=== PATIENT | female | born 1995 | race Caucasian/White ===

== ENCOUNTER 2017-10-21 19:34 | Emergency (ER) | payer BC ==
--- NOTE | 2017-10-21 20:12 | UC ---
Respiratory Complaint HPI - HPI Summary HPI Summary: Pt presents with 3 weeks of cold symptoms. She says about 3 weeks ago her symptoms started with a sore throat that, over the week, progressed to sinus pain/pressure/congestion. Over the last week has developed an intermittently productive cough in addition to the above. She has felt feverish at times, but has not taken her temperature. Has been taking ibuprofen and OTC mucinex with no relief. Denies chills, SOB, chest pain, abdominal pain, n/v/d/c. - History of Current Complaint Stated Complaint: UPPER RESPIRATORY Time Seen by Provider: 10/21/17 20:04 Hx Obtained From: Patient Hx Last Menstrual Period: 06/01/16 Onset/Duration: Gradual Onset Timing: Constant Severity Initially: Mild Severity Currently: Moderate Pain Intensity: 6 Pain Scale Used: 0-10 Numeric Character: Cough: Productive - Allergies/Home Medications Allergies/Adverse Reactions: Allergies Allergy/AdvReac Type Severity Reaction Status Date / Time No Known Allergies Allergy Verified 06/04/16 17:10 PMH/Surg Hx/FS Hx/Imm Hx - Additional Past Medical History Additional PMH: None Previously Healthy: Yes - Surgical History Surgical History: Yes Surgery Procedure, Year, and Place: bilat ACL, T&A - Family History Known Family History: Positive: Hypertension, Respiratory Disease - Social History Occupation: Student Lives: Alone Alcohol Use: Occasionally Substance Use Type: None Smoking Status (MU): Never Smoked Tobacco Review of Systems Constitutional: Negative Skin: Negative Eyes: Negative ENT: Sore Throat, Nasal Discharge, Sinus Congestion, Sinus Pain/Tenderness Respiratory: Cough Cardiovascular: Negative Gastrointestinal: Negative Neurovascular: Negative Musculoskeletal: Negative Neurological: Negative Psychological: Negative All Other Systems Reviewed And Are Negative: Yes Physical Exam - Summary Physical Exam Summary: GENERAL: Mildly ill appearing. NAD. HEENT: NC/AT. Conjunctiva clear without inflammation or discharge. TMs intact , no bulging, erythema, or edema. Nasal mucosa mildly swollen and erythematous with yellow discharge. TTP maxillary and frontal sinus. Posterior oropharynx without exudates, erythema, or tonsillar enlargement. Uvula midline. NECK: Supple without lymphadenopathy CHEST: CTAB. No r/r/w. No accessory muscle use. Breathing comfortably and in no distress. CV: RRR. Without m/r/g. Pulses intact. SKIN: No rash or erythema noted. NEURO: Alert. CN II-XII grossly intact. PSYCH: Age appropriate behavior. Triage Information Reviewed: Yes Respiratory Course/Dx - Course Course Of Treatment: Sinusitis - Augmentin - Differential Dx/Diagnosis Provider Diagnoses: Sinusitis Discharge - Sign-Out/Discharge Documenting (check all that apply): Discharge - Discharge Plan Condition: Stable Disposition: HOME Prescriptions: Amoxicillin/Clavulanate TAB* [Augmentin TAB 875*] 875 mg PO BID #20 tab Patient Education Materials: Sinusitis (ED) Referrals: No Primary Care Phys,NOPCP [Medical Doctor] - Additional Instructions: If you develop a fever, shortness of breath, chest pain, new or worsening symptoms - please call your PCP or go to the ED. - Billing Disposition and Condition Condition: STABLE Disposition: HOME
[2017-10-21 20:17] VITALS: BP 130/77
[2017-10-21] MEDS ORDERED: Amoxicillin/Clavulanate TAB* 875 MG PO ONE (20:26)
== END 2017-10-21 20:37 | disposition home or self-care (01) ==
LOC: UCCORT 19:34
DX: J32.9 Chronic sinusitis, unspecified (principal)
CPT/HCPCS: 99212; A9270-GY; G0463

== ENCOUNTER 2017-11-18 17:18 | Emergency (ER) | payer BC ==
[2017-11-18 18:27] VITALS: BP 132/79
[2017-11-18] MEDS ORDERED: predniSONE TAB* 20 MG PO ONE (18:46)
--- NOTE | 2017-11-18 19:14 | UC ---
Skin Complaint HPI - HPI Summary HPI Summary: states about 9 days ago she used a product to remove hair from legs/thighs and that she started itching then. The rash has worsened despite using OCD benadryl and other antihistamines. Denies fever, pain or d/c - History of Current Complaint Chief Complaint: UCRash Time Seen by Provider: 11/18/17 18:32 Stated Complaint: SKIN COMPLAINT - RASH Hx Obtained From: Patient Hx Last Menstrual Period: [id number] ?: No Onset/Duration: Sudden Onset, Lasting Days Skin Exposure Onset/Duration: Days Ago Timing: Constant Onset Severity: Mild Current Severity: Moderate Pain Intensity: 0 Pain Scale Used: 0-10 Numeric Location: Discrete - thighs and legs Character: Pruritus, Hives Aggravating Factor(s): Wind, Humidity Alleviating Factor(s): Nothing Associated Signs & Symptoms: Positive: Negative Related History: Trauma - Allergy/Home Medications Allergies/Adverse Reactions: Allergies Allergy/AdvReac Type Severity Reaction Status Date / Time No Known Allergies Allergy Verified 11/18/17 18:27 Review of Systems Constitutional: Negative All Other Systems Reviewed And Are Negative: Yes PMH/Surg Hx/FS Hx/Imm Hx Previously Healthy: Yes - Surgical History Surgical History: Yes Surgery Procedure, Year, and Place: bilat ACL, T&A - Family History Known Family History: Positive: Hypertension, Respiratory Disease - Social History Alcohol Use: Occasionally Substance Use Type: None Smoking Status (MU): Never Smoked Tobacco Physical Exam Triage Information Reviewed: Yes Appearance: Well-Appearing, No Pain Distress, Well-Nourished Vital Signs: Initial Vital Signs Temp 98.6 F 11/18/17 18:20 Pulse 84 11/18/17 18:20 Resp 16 11/18/17 18:20 BP 132/79 11/18/17 18:20 Pulse Ox 100 11/18/17 18:20 Vital Signs Reviewed: Yes Eyes: Positive: Conjunctiva Clear ENT: Positive: Hearing grossly normal Neck: Positive: Supple Respiratory: Positive: No respiratory distress Cardiovascular: Positive: Pulses Normal, Brisk Capillary Refill Skin Exam: Other Skin: Positive: rashes - macular erythematous rash with some raised borders on inner thighs and legs Course/Dx - Course Course Of Treatment: start prednisone with breakfast, apply HCT cream as directed, f/u with PCP in 2 w - Diagnoses Provider Diagnoses: contact dermatitis Discharge - Sign-Out/Discharge Documenting (check all that apply): Discharge/Admit/Transfer - Discharge Plan Condition: Stable Disposition: HOME Prescriptions: Hydrocortisone 2.5% CREAM(NF) 1 applic TOPICAL QID 7 Days #1 tube predniSONE TAB* [Deltasone TAB*] 40 mg PO DAILY 5 Days #10 tab Patient Education Materials: Prednisone (By mouth), Dermatitis (ED) Referrals: Dania Sahni MD [Primary Care Provider] - - Billing Disposition and Condition Condition: STABLE Disposition: HOME
== END 2017-11-18 19:07 | disposition home or self-care (01) ==
LOC: UCCORT 17:18
DX: L25.9 Unspecified contact dermatitis, unspecified cause (principal)
CPT/HCPCS: 99212; G0463; J7512

== ENCOUNTER 2018-05-05 13:32 | Emergency (ER) | payer BC ==
[2018-05-05 13:47] VITALS: BP 135/74
--- NOTE | 2018-05-05 14:18 | UC ---
General HPI - HPI Summary HPI Summary: 04/16/18, pt felt a sudden sharp pain in her R knee upon landing during coed vollyball. she noted swelling after. she also noted pain and stiffness with bending. she tx with ice and elevation. the knee improved and she resumed vollyball plus ran causing the knee to swell again. pt also notes the knee gives out and pops. she had bilateral acl repairs. - History of Current Complaint Chief Complaint: UCLowerExtremity Stated Complaint: RIGHT KNEE INJURY Time Seen by Provider: 05/05/18 14:02 Hx Obtained From: Patient Hx Last Menstrual Period: 05/03/18 Pain Intensity: 9 Associated Signs & Symptoms: Negative: Fever - Allergy/Home Medications Allergies/Adverse Reactions: Allergies Allergy/AdvReac Type Severity Reaction Status Date / Time No Known Allergies Allergy Verified 05/05/18 13:40 Home Medications: Home Medications NK [No Home Medications Reported] 05/05/18 [History Confirmed 05/05/18] PMH/Surg Hx/FS Hx/Imm Hx - Additional Past Medical History Additional PMH: ACL REPAIRS BOTH KNEES - Surgical History Surgical History: Yes Surgery Procedure, Year, and Place: bilat ACL, T&A - Family History Known Family History: Positive: Hypertension, Respiratory Disease - Social History Occupation: Employed Part-time, Student Alcohol Use: Occasionally Substance Use Type: None Smoking Status (MU): Never Smoked Tobacco - Immunization History Most Recent Tetanus Shot: UTD Vaccination Up to Date: Yes Review of Systems Constitutional: Negative Skin: Negative Eyes: Negative ENT: Negative Respiratory: Negative Cardiovascular: Negative Gastrointestinal: Negative Genitourinary: Negative Motor: Negative Neurovascular: Negative Musculoskeletal: Other: - R KNEE PAIN/SWELLING Neurological: Negative Psychological: Negative Is Patient Immunocompromised?: No All Other Systems Reviewed And Are Negative: Yes Physical Exam Triage Information Reviewed: Yes Vital Signs: Initial Vital Signs Temp 97.8 F 05/05/18 13:41 Pulse 75 05/05/18 13:41 Resp 16 05/05/18 13:41 BP 135/74 05/05/18 13:41 Pulse Ox 100 05/05/18 13:41 Vital Signs Reviewed: Yes Eyes: Positive: Conjunctiva Clear ENT: Positive: Normal ENT inspection Neck: Positive: Supple, Nontender, No Lymphadenopathy Respiratory: Positive: Lungs clear, Normal breath sounds Cardiovascular: Positive: RRR, No Murmur Abdomen Description: Positive: Nontender, No Organomegaly, Soft Bowel Sounds: Positive: Present Musculoskeletal: Positive: Other: - RLE: HIP, ANKLE AND FOOT NON TENDER AND NO SWELLING. R MEDIAL KNEE IS SWOLLEN. TENDER OVER JOINT LINE. NO LAXITY TO THE JOINT. PATELLA NOT BALLOTABLE. LEG HAS GROSS S/V/M FUNCTION. Diagnostics - Radiology No standard instances Radiology Interpretation Completed By: Radiologist - IMPRESSION: 1. JOINT EFFUSION, NO FRACTURE IS SEEN. 2. STATUS POST REMOTE ANTERIOR CRUCIATE LIGAMENT REPAIR. Course/Dx - Course Course Of Treatment: no fx, dislocation or concern for infection. no gross joint laxity. possible meniscal tear. - Differential Dx - Multi-Symptom Provider Diagnoses: acute R knee pain. R knee effusion. Possible R meniscal tear. Discharge - Sign-Out/Discharge Documenting (check all that apply): Patient Departure All imaging exams completed and their final reports reviewed: Yes - Discharge Plan Condition: Stable Disposition: HOME Patient Education Materials: Swollen Knee Joint (ED), Knee Pain (ED) Referrals: Garo Jones MD [Medical Doctor] - As Soon As Possible Additional Instructions: USE THE SARAH DURING DAY AND REMOVE AT BEDTIME. USE CRUTCHES. - Billing Disposition and Condition Condition: STABLE Disposition: Home - Attestation Statements Provider Attestation: I was available for consult. This patient was seen by the [facility]. The patient was not presented to, seen by, or examined by me. -Justin
--- NOTE | 2018-05-05 14:48 | RAD ---
INDICATION: Right knee injury. TECHNIQUE: 4 views of the right knee were obtained. FINDINGS: The patient is status post anterior cruciate ligament repair. The bones are normal alignment. There is a moderate joint effusion present. No fracture is seen. Joint spaces appear maintained. IMPRESSION: 1. JOINT EFFUSION, NO FRACTURE IS SEEN. 2. STATUS POST REMOTE ANTERIOR CRUCIATE LIGAMENT REPAIR.
== END 2018-05-05 15:01 | disposition home or self-care (01) ==
LOC: UCCORT 13:32
DX: M25.561 Pain in right knee (principal); M25.461 Effusion, right knee
CPT/HCPCS: 99212; G0463